=== PATIENT | female | born 1960 | race Caucasian/White ===

== ENCOUNTER 2017-04-18 21:11 | Emergency (ER) | payer SELFPAY ==
--- NOTE | 2017-04-18 21:43 | RAD ---
LEFT KNEE FOUR VIEWS: 04/18/17 HISTORY: Left knee pain. FINDINGS: Joint spaces are preserved. No acute fracture, dislocation, or aggressive osseous destruction is appa rent. There is minimal osteophytosis. Fluid distends the suprapatellar bursa on the lateral view. IMPRESSION: 1. Joint fluid could be related to hemarthrosis from internal derangement or an effusion, possib ly related to the very mild osteoarthritic changes. 2. No acute osseous abnormalities are demonstrated. POS: [facility]
== END 2017-04-18 22:16 | disposition home or self-care (01) ==
LOC: ERS 21:11
DX: M70.52 Other bursitis of knee, left knee (principal)